=== PATIENT | male | born 2000 | race Caucasian/White ===

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

== ENCOUNTER → 2019-03-07 | Outpatient (CLI) | payer BC, MEDICAID ==
[~2019-03-07] MED LIST: CLON-412; QUET1TAB10; QUET200T2; SERO400T PO; SERT50TA29
--- NOTE | 2019-03-07 18:10 | REP ---
MRI brain: 03/07/2019. Indication: Left-sided weakness. Comparison: None. Technique: Multiplanar shortened long TR sequences of the brain were performed without IV IV contrast. Findings: Diagnostic quality of the imaging is degraded by patient motion. No areas of restricted diffusion are present. There is no evidence of elevated intracranial pressure, mass effect or hydrocephalous. No signal abnormalities are detected within the brainstem or brain parenchyma. The midline structures and craniocervical junction are unremarkable. The large intracranial flow voids are unremarkable. Tiny left mastoid effusion is present. Impression: Within limitations of the study, no acute intracranial abnormalities are present. Unremarkable brain. Electronically Signed by Harish Ortiz DO 03/07/2019 06:03 P
== END ==
LOC: M RAD 16:39
PROVIDERS: ATTEND Family Medicine
DX: R53.1 Weakness (principal)